=== PATIENT | male | born 1960 | race American Indian/Alaskan Native ===

== ENCOUNTER 2017-03-02 10:10 | Emergency (ER) | payer MEDICARE ==
--- NOTE | 2017-03-02 13:18 | XRay Report ---
Chest 2 views: History: Shortness of breath. Findings: Normal cardiomediastinal silhouette. Trachea is midline. Linear densities lower lobes bilaterally. Discoid atelectasis or scarring lower lobes bilaterally. Normal CP angles. Impression: Discoid atelectasis or scarring right and left lower lobe.
[2017-03-02 14:06] LABS: INR 0.96 (0.87-1.13)
[2017-03-02 14:07] LABS: Partial Thromboplastin Time 30.4 Sec. (24.2-36.6)
[2017-03-02 14:14] LABS: Basophils % (Auto) 0.5 % (0.0-1.8); Eosinophils % (Auto) 6.4 % (0.0-4.3); Hematocrit 36.2 % (35.5-45.6); Hemoglobin 12.1 gm/dl (11.8-15.2); Mean Corpuscular HGB Conc 34 % (32-34); Mean Corpuscular Hemoglobin 31 pg (28-32); Mean Corpuscular Volume 92 fl (84-94); Platelet Count 253 K/mm3 (140-440); Red Blood Count 3.93 M/mm3 (3.65-5.03); Red Cell Distribution Width 15.2 % (13.2-15.2); White Blood Count 10.3 K/mm3 (4.5-11.0)
[2017-03-02 14:15] LABS: Anion Gap 16 mmol/L; Blood Urea Nitrogen 11 mg/dL (9-20); Carbon Dioxide 24 mmol/L (22-30); Chloride 101.8 mmol/L (98-107); Glucose 99 mg/dL (75-100); Potassium 4.2 mmol/L (3.6-5.0); Sodium 138 mmol/L (137-145)
[2017-03-02 14:19] LABS: Alanine Aminotransferase 23 units/L (7-56); Albumin 3.9 g/dL (3.9-5); Albumin/Globulin Ratio 1.2 %; Alkaline Phosphatase 99 units/L (35-129); Total Protein 7.2 g/dL (6.3-8.2)
[2017-03-02] MEDS ORDERED: NORCO 5/325 PO ONE (14:33)
[2017-03-02 14:35] LABS: Bilirubin,Direct < 0.2 mg/dL (0-0.2)
--- NOTE | 2017-03-02 16:16 | Emergency Department Report ---
ED General Adult HPI - General Chief complaint: Medical Clearance Stated complaint: BILATERAL LEG SWELLING Time Seen by Provider: 03/02/17 12:34 Source: patient Mode of arrival: Ambulatory Limitations: No Limitations - History of Present Illness Initial comments: Patient complains of bilateral swelling of his legs and feet for the past 2 weeks. He denies any recent travel. He states his legs are painful. He states his left leg is a bit more swollen than the right. He has some dyspnea on exertion but it is not acute. He does not complain of cough change in urinating or any other swelling. He states he's never had leg swelling before. -: week(s) Location: lower extremity Radiation: non-radiation Quality: aching Consistency: intermittent Improves with: none Worsens with: none Associated Symptoms: denies other symptoms Treatments Prior to Arrival: none - Related Data Previous Rx's Medication Instructions Recorded Last Taken Type Sulfamethoxazole/Trimethoprim 1 each PO BID #14 tablet 03/02/17 Unknown Rx [Bactrim DS TAB] traMADol [Ultram] 50 mg PO Q6HR PRN #10 tablet 03/02/17 Unknown Rx Allergies Allergy/AdvReac Type Severity Reaction Status Date / Time No Known Allergies Allergy Unverified 03/02/17 10:42 ED Review of Systems ROS: Stated complaint: BILATERAL LEG SWELLING Other details as noted in HPI Constitutional: denies: chills, fever Eyes: denies: eye pain, eye discharge, vision change ENT: denies: ear pain, throat pain Respiratory: SOB with exertion. denies: cough, shortness of breath, wheezing Cardiovascular: denies: chest pain, palpitations Endocrine: no symptoms reported Gastrointestinal: denies: abdominal pain, nausea, diarrhea Genitourinary: denies: urgency, dysuria Musculoskeletal: as per HPI, other. denies: back pain, joint swelling, arthralgia Skin: denies: rash, lesions Neurological: denies: headache, weakness, paresthesias Psychiatric: denies: anxiety, depression Hematological/Lymphatic: denies: easy bleeding, easy bruising ED Past Medical Hx - Past Medical History Hx Hypertension: Yes - Surgical History Additional Surgical History: SCREWS IN NECK - Social History Smoking Status: Former Smoker Substance Use Type: None - Medications Home Medications: Home Medications Medication Instructions Recorded Confirmed Last Taken Type Sulfamethoxazole/Trimethoprim 1 each PO BID #14 tablet 03/02/17 Unknown Rx [Bactrim DS TAB] traMADol [Ultram] 50 mg PO Q6HR PRN #10 tablet 03/02/17 Unknown Rx ED Physical Exam - General Limitations: No Limitations General appearance: alert, in no apparent distress, obese - Head Head exam: Present: atraumatic, normocephalic - Eye Eye exam: Present: normal appearance. Absent: scleral icterus - ENT ENT exam: Present: mucous membranes moist - Neck Neck exam: Present: normal inspection - Respiratory Respiratory exam: Present: normal lung sounds bilaterally. Absent: respiratory distress - Cardiovascular Cardiovascular Exam: Present: regular rate, normal rhythm. Absent: systolic murmur, diastolic murmur, rubs, gallop - GI/Abdominal GI/Abdominal exam: Present: soft, normal bowel sounds, other (there is no inguinal adenopathy). Absent: distended, tenderness, guarding, rebound - Rectal Rectal exam: Present: deferred - Extremities Exam Extremities exam: Present: normal inspection, other (there is bilateral calf and pedal edema most of the dorsum of the foot.) - Back Exam Back exam: Present: normal inspection - Neurological Exam Neurological exam: Present: alert, oriented X3, CN II-XII intact. Absent: motor sensory deficit - Psychiatric Psychiatric exam: Present: normal affect, normal mood - Skin Skin exam: Present: warm, dry, intact, erythema (particularly the right pretibial area). Absent: rash ED Course Vital Signs 03/02/17 03/02/17 10:31 12:00 Temperature 98.1 F Pulse Rate 84 Respiratory 18 20 Rate Blood Pressure 126/75 O2 Sat by Pulse 98 98 Oximetry - Reevaluation(s) Reevaluation #1: Patient's workup was substantially negative. I believe he has stasis cellulitis. I doubt this is an acute problem for him. He will be treated with an antibiotic leg elevation and referral to primary care. If it persists a repeat Doppler would be advised within a week or 2. 03/02/17 16:17 ED Medical Decision Making - Lab Data Result diagrams: 03/02/17 13:45 03/02/17 13:45 Laboratory Results - last 24 hr 03/02/17 03/02/17 03/02/17 13:45 13:45 13:45 WBC RBC Hgb Hct MCV MCH MCHC RDW Plt Count Lymph % (Auto) Lamb % (Auto) Eos % (Auto) Baso % (Auto) Lymph # Lamb # Eos # Baso # Seg Neutrophils % Seg Neutrophils # PT 13.3 INR 0.96 APTT 30.4 Sodium 138 Potassium 4.2 Chloride 101.8 Carbon Dioxide 24 Anion Gap 16 BUN 11 Creatinine 1.0 Estimated GFR > 60 BUN/Creatinine Ratio 11.00 Glucose 99 Calcium 9.0 Magnesium 2.00 Total Bilirubin 0.20 Direct Bilirubin < 0.2 AST 21 ALT 23 Alkaline Phosphatase 99 Troponin T < 0.010 NT-Pro-B Natriuret Pep 28.67 Total Protein 7.2 Albumin 3.9 Albumin/Globulin Ratio 1.2 03/02/17 13:45 WBC 10.3 RBC 3.93 Hgb 12.1 Hct 36.2 MCV 92 MCH 31 MCHC 34 RDW 15.2 Plt Count 253 Lymph % (Auto) 26.1 Lamb % (Auto) 8.9 H Eos % (Auto) 6.4 H Baso % (Auto) 0.5 Lymph # 2.7 Lamb # 0.9 H Eos # 0.7 H Baso # 0.1 Seg Neutrophils % 58.1 Seg Neutrophils # 6.0 PT INR APTT Sodium Potassium Chloride Carbon Dioxide Anion Gap BUN Creatinine Estimated GFR BUN/Creatinine Ratio Glucose Calcium Magnesium Total Bilirubin Direct Bilirubin AST ALT Alkaline Phosphatase Troponin T NT-Pro-B Natriuret Pep Total Protein Albumin Albumin/Globulin Ratio - Radiology Data Radiology results: report reviewed interpreted by me: VASCULAR LAB PRELIMINARY REPORT BLE VENOUS DOPPLER COMPLETED NO EVIDENCE OF DVT/SVT NOTED IN VESSELS/SEGMENTS VISUALIZED Chest x-ray showed no evidence of congestive heart failure or acute process Critical care attestation.: If time is entered above; I have spent that time in minutes in the direct care of this critically ill patient, excluding procedure time. ED Disposition Clinical Impression: Venous stasis, Cellulitis of left leg Disposition: DC-01 TO HOME OR SELFCARE Is pt being admited?: No Does the pt Need Aspirin: No Condition: Stable Instructions: Peripheral Vascular Disorders (ED), Cellulitis (ED) Additional Instructions: Follow-up with her primary care physician. Additional testing may be required. Return fever increased swelling or redness. See refers and Rx. Prescriptions: Sulfamethoxazole/Trimethoprim [Bactrim DS TAB] 1 each PO BID #14 tablet traMADol [Ultram] 50 mg PO Q6HR PRN #10 tablet PRN Reason: Pain Referrals: PRIMARY CARE, [Primary Care Provider] - 3-5 Days [facility] [Provider Group] - 3-5 Days Time of Disposition: 16:19
[2017-03-02 16:31] VITALS: BP 125/84
--- NOTE | 2017-03-05 07:34 | Vascular Lab Report ---
LOWER EXTREMITY VENOUS DUPLEX: REASON FOR EXAM: Swelling of the lower extremities. COMMENTS ON THE RIGHT: All veins visualized are freely compressible without evidence of internal echogenicity. Flow is spontaneous and phasic throughout. COMMENTS ON THE LEFT: All veins visualized are freely compressible without evidence of internal echogenicity. Flow is spontaneous and phasic throughout. IMPRESSION: No evidence of acute or chronic deep venous thrombosis in either lower extremity.
== END 2017-03-02 16:33 | disposition home or self-care (01) ==
LOC: ED 10:10
DX: L03.116 Cellulitis of left lower limb (principal); I87.8 Other specified disorders of veins; I10 Essential (primary) hypertension
CPT/HCPCS: 36415; 71020; 80048; 80074; 83735; 83880; 84484; 85025; 85610; 85730; 93005; 93010; 93970